=== PATIENT | female | born 1940 | race Asian ===

== ENCOUNTER 2017-12-04 13:51 | Inpatient (IN) | payer OTHER ==
[~2017-12-04] VITALS: Ht 162.6 cm; Wt 115.7 kg
--- NOTE | 2017-12-04 13:51 | NUR ---
Placed in room 01 . Placed on land agent, blood pressure machine and pulse oximeter. To gown for exam. Side rails up.
[2017-12-04 13:52] VITALS: BP_SYST 111
--- NOTE | 2017-12-04 13:53 | NUR ---
[facility] AAOx[facility] c/o acute onset of unprovoked SOB accompanying nausea and vomiting, accessory muscle use. One episode of vomiting upon arrival. Skin pink dry and warm. No other injuries/complaints per pt/noted.
--- NOTE | 2017-12-04 13:55 | NUR ---
EKG done at bedside
[2017-12-04] MEDS ORDERED: IPRATROPIUM/ALBUTEROL SULFATE 3 ML AMPUL.NEB (DUONEB) INH ONE (14:00)
[2017-12-04] MEDS ORDERED: ASPIRIN 325 MG TABLET PO ONE (14:00)
[2017-12-04] MEDS ORDERED: CYAN100097 PO (14:10)
[2017-12-04] MEDS ORDERED: LEVO25TA7 PO (14:10)
[2017-12-04] MEDS ORDERED: TRAZ-123 PO (14:10)
[2017-12-04] MEDS ORDERED: CARV6.2554 PO (14:10)
[2017-12-04] MEDS ORDERED: FER300L PO (14:10)
[2017-12-04] MEDS ORDERED: PRO40 PO (14:10)
[2017-12-04] MEDS ORDERED: LIDOCAINE PATCH TP (14:10)
[2017-12-04] MEDS ORDERED: PERC10 PO (14:10)
[2017-12-04] MEDS ORDERED: GABA-531 PO (14:10)
[2017-12-04] MEDS ORDERED: IPRA3AMP9 INH (14:10)
[2017-12-04] MEDS ORDERED: METO-290 PO (14:10)
[2017-12-04] MEDS ORDERED: WELSR150 PO (14:10)
[2017-12-04] MEDS ORDERED: LIP40 PO (14:10)
[2017-12-04] MEDS ORDERED: ALBU2.5V7 INH (14:10)
[2017-12-04] MEDS ORDERED: FLUT16SP16 NS (14:10)
[2017-12-04] MEDS ORDERED: MORP15TA60 PO (14:10)
[2017-12-04] MEDS ORDERED: METF1000 PO (14:10)
[2017-12-04] MEDS ORDERED: FAMO-132 PO (14:10)
[2017-12-04] MEDS ORDERED: GLIP5TAB13 PO (14:10)
[2017-12-04] MEDS ORDERED: LOSA50TA3 PO (14:10)
[2017-12-04] MEDS ORDERED: SSREG SUBCUT (14:10)
--- NOTE | 2017-12-04 14:10 | NUR ---
Medication reconciliation completed with information provided by HORTENCIA DAVID. Any prior medication reconciliation on file was reviewed and corrected.
--- NOTE | 2017-12-04 14:16 | NUR ---
RT at bedside for breathing tx
[2017-12-04 14:37] LABS: BASOPHILS # (AUTO) 0.3 K/uL (0.0-0.2); BASOPHILS % (AUTO) 4.2 % (0.0-2.0); EOSINOPHILS # (AUTO) 0.4 K/uL (0.0-0.4); EOSINOPHILS % (AUTO) 5.5 % (0.0-4.0); HEMATOCRIT 30.2 % (36-48); HEMOGLOBIN 9.9 g/dL (12.0-16.0); LYMPHOCYTES # (AUTO) 1.3 K/uL (1.0-5.5); LYMPHOCYTES % (AUTO) 17.8 % (20.5-51.5); MEAN CORPUSCULAR HEMOGLOBIN 30 pg (27-31); MEAN CORPUSCULAR HGB CONC 33 % (32-36); MEAN CORPUSCULAR VOLUME 93 fL (79.0-98.0); MONOCYTES # (AUTO) 0.3 K/uL (0.0-1.0); MONOCYTES % (AUTO) 4.3 % (1.7-9.3); NEUTROPHILS # (AUTO) 4.8 K/uL (1.8-7.7); NEUTROPHILS % (AUTO) 68.2 % (40.0-70.0); PLATELET COUNT (AUTO) 239 K/uL (130-430); RED BLOOD CELL COUNT(AUTO) 3.26 MIL/uL (4.2-6.2); RED CELL DISTRIBUTION WIDTH 15.5 % (9.0-15.0); WHITE BLOOD COUNT (AUTO) 7.1 K/uL (4.8-10.8)
--- NOTE | 2017-12-04 15:00 | NUR ---
Unsuccessful PIV attempts x 3.
[2017-12-04 15:10] LABS: ANION GAP 13 (5-15); CHLORIDE 102 mmol/L (98-107); CREATININE 1.09 mg/dL (0.55-1.30); GLUCOSE 187 mg/dL (70-99); POTASSIUM 5.4 mmol/L (3.5-5.1); SODIUM SERUM 135 mmol/L (136-145); UREA NITROGEN, BLOOD 27 mg/dL (8-21)
[2017-12-04 15:15] LABS: ALANINE AMINOTRANSFERASE 22 U/L (12-78); ALBUMIN 3.5 g/dL (3.4-4.8); ASPARTATE AMINOTRANSFERASE 35 U/L (10-37); TOTAL BILIRUBIN 0.8 mg/dL (0.0-1.0)
--- NOTE | 2017-12-04 15:30 | NUR ---
Lab at bedside.
[2017-12-04] MEDS ORDERED: INSULIN REGULAR, HUMAN 10 UNITS/0.1 ML INJ IVP ONE (16:45)
[2017-12-04] MEDS ORDERED: SODIUM POLYSTYRENE SULFONATE 15 GM/60 ML UDBTL PO ONE (16:45)
[2017-12-04] MEDS ORDERED: CALCIUM GLUCONATE 1 GM in NS 100 ML IV ONE (16:45)
--- NOTE | 2017-12-04 17:00 | NUR ---
Pt scoots to edge of bed yelling that she wants to leave. Pt instructed to get back into bed for her safety. Pt complies.
--- NOTE | 2017-12-04 17:18 | NUR ---
CALL PLACED TO DAUGHTER AT GIVEN NUMBER, LEFT MESSAGE FOR CALL BACK
--- NOTE | 2017-12-04 17:20 | NUR ---
Unable to establish PIV access to administer medications ordered. Dr. Urias made aware.
--- NOTE | 2017-12-04 17:37 | NUR ---
Pt screaming and yelling to leave. Ativan 2 mg given IM to Right Deltoid per VO Dr. Urias. Pt in view of nursing station.
[2017-12-04] MEDS ORDERED: LORazepam 2 MG/ML VIAL IVP ONE (17:45)
--- NOTE | 2017-12-04 17:50 | NUR ---
Pt relaxed in bed, no further screaming VSS.
[2017-12-04] MEDS ORDERED: LORazepam 2 MG/ML VIAL (FOR ER USE) ONE (17:59)
--- NOTE | 2017-12-04 18:45 | NUR ---
Dr. Urias at bedside to place central line.
[2017-12-04] MEDS ORDERED: LORazepam 2 MG/ML VIAL IM ONE (19:15)
--- NOTE | 2017-12-04 19:16 | NUR ---
Dr Urias at bedside attempting central line insertion, unable to establish access due to ultrasound machine malfunction. Charge nurse notified, primary nurse notified.
--- NOTE | 2017-12-04 19:20 | NUR ---
Recieved report from Bhupendra KURTZ. Will assume care at this time.
--- NOTE | 2017-12-04 19:30 | NUR ---
#20 gauge angiocath placed to LAC. Use of asceptic technique. Opsite placed over site. Blood return noted. Flushed with 10 cc of normal saline. No evidence of infiltration noted. Patient tolerated well.
[2017-12-04] MEDS ORDERED: CALCIUM GLUCONATE 1 GM/10 ML VIAL ONE (19:36)
[2017-12-04] MEDS ORDERED: INSULIN REGULAR, HUMAN 100 UNITS/ML, 10 ML VIAL (novoLIN R) ONE (19:37)
[2017-12-04] MEDS ORDERED: SODIUM POLYSTYRENE SULFONATE 15 GM/60 ML UDBTL ONE (19:38)
[2017-12-04] MEDS ORDERED: DEXTROSE 50% JECT 50 ML DISP.SYRIN IVP ONE (20:00)
[2017-12-04] MEDS ORDERED: cefTRIAXone 1 GM in D5W 50 ML IV ONE (20:00)
--- NOTE | 2017-12-04 20:00 | NUR ---
Spoke with staff of [facility]. Informed that patient's code status is full code. Documentation placed to chart.
[2017-12-04] MEDS ORDERED: IOHEXOL 350 mgI/mL, 150 ML INFUS..BTL IV ONE (20:25)
--- NOTE | 2017-12-04 20:40 | NUR ---
Patient transported off unit for CT via gurney, accompanied by radiology staff.
[2017-12-04] MEDS ORDERED: cefTRIAXone 1 GM VIAL ONE (20:41)
--- NOTE | 2017-12-04 21:07 | NUR ---
Patient returned to unit.
[2017-12-04] MEDS ORDERED: NACL 0.9% 1,000 ML IV ONE (21:30)
--- NOTE | 2017-12-04 22:00 | NUR ---
Medication reconciliation completed with information provided by patient. Any prior medication reconciliation on file was reviewed and corrected.
[2017-12-04 22:25] LABS: BILIRUBIN,URINE NEGATIVE (NEGATIVE); BLOOD, URINE NEGATIVE (NEGATIVE); CLARITY/URINE CLEAR (CLEAR); COLOR,URINE YELLOW (YELLOW); GLUCOSE,URINE NEGATIVE (NEGATIVE); KETONES,URINE NEGATIVE (NEGATIVE); LEUKOCYTE ESTERASE ,URINE NEGATIVE (NEGATIVE); NITRITE, URINE NEGATIVE (NEGATIVE); PH,URINE 5.5 (5.0-8.0); PROTEIN URINE NEGATIVE (NEGATIVE)
--- NOTE | 2017-12-04 22:35 | NUR ---
Patient will be admitted to care of Dr. Nunez. Admitted to Telemetry unit. Will go to room 107B. Belongings list completed. Summary report printed. Report will be given at bedside. Transfer to telemetry via ACLS protocol. Licensed nurse present. IV present no signs or symptoms of infiltration.
--- NOTE | 2017-12-04 22:37 | NUR ---
ADMISSION: The patient, JIMMY DOLAN, 77 y/o, F admitted by BELLE GUEVARA MD, was given written information regarding hospital policies, unit procedures and contact persons.
--- NOTE | 2017-12-04 22:50 | NUR ---
INITIAL NOTES: PT IS AWAKE , CONFUSED ; VITALS ARE STABLE NOTICED BP IS LOW T 98 F, BP 103/65MMOF HG , HR 81/MIN . R 20/MIN ,SAT 96ON ROOM AIR AT THIS TIME ; NOTICED IV TO THE LEFT FA NEAR AC 20 G, , IV FLUSHED WELL ; PT HAS COLOSTOMY TO THE LEFT ABDOMEN , COLOSTOMY NOTED WITH SOFT FOAMED DARK BROWN STOOL ; COLOSTOMY BAG REMOVED , SITE CLEANED NOTED OPEN WOUND CLEANED WITH NS AND APPLIED COLOSTOMY BAG AFTER APPLIED COLOSTOMY BARRIER RING , STOMA IS PINK TO RED COLOR ,NO DISCOLORATION NOTED , NOTICED A SMALL WOUND AROUND THE STOMA ; ALSO NOTED ABDOMEN WITH OLD SCAR , LEFT LATERAL LEG WITH INCISION HEALED , JULIETA KNEES WITH SCAR AND R CHEEK WITH PURPLE DISCOLORATION , LEFT POSTERIOR SHOULDER WITH SCAR ; ASSESSMENT DONE ; PT IS INCONTINENT ; NOTICED PT IS REMOVING O2 ; REORIENTED PT ; BED IN LOW AND LOCK POSITION ; CALL [place] IN REACH ; ENCOURAGED PT TO CALL FOR ASSIST ; WILL CONTINUE TO MONITOR PT .
[2017-12-04 23:10] VITALS: BP_SYST 115
[2017-12-04] MEDS ORDERED: ONDANSETRON HCL 4 MG/2 ML VIAL IVP PRN (23:45)
[2017-12-04] MEDS ORDERED: IPRATROPIUM/ALBUTEROL SULFATE 3 ML AMPUL.NEB (DUONEB) INH PRN (23:45)
[2017-12-04] MEDS ORDERED: ALBUTEROL SULFATE 0.083% 2.5 MG/3 ML VIAL.NEB INH PRN ×2 (23:45)
[2017-12-05] MEDS ORDERED: PIPERACILLIN/TAZO 3.375/DEX-IS 50 ML IV SCH
--- NOTE | 2017-12-05 00:10 | NUR ---
RN NOTES: WAITING FOR ZOSYN FROM [employer]TR[employer] PRESS ADJUST[employer] ; WILL START ONCE RECEIVED ; PT IS VERY CONFUSED; WILL CONTINUE TO MONITOR PT .
[2017-12-05] MEDS ORDERED: AZITHROMYCIN 500 MG/VIAL (ZITHROMAX) IV ONE (00:29)
[2017-12-05] MEDS ORDERED: PIPERACILLIN/TAZOBACTAM 3.375 GM/VIAL (ZOSYN) IV ONE (00:29)
[2017-12-05] MEDS: ZOSYN (PIPERACILLIN/TAZO) 3.375 GM in DEX-ISO (50ml) IV SCH ×5 (00:39→23:31)
--- NOTE | 2017-12-05 00:39 | NUR ---
ZOSYN : ZOSYN RECEIVED FROM [employer]. IVPB STATED PER ORDER . WILL CONTINUE TO MONITOR PT .
--- NOTE | 2017-12-05 00:50 | NUR ---
RN ROUNDS: NO REACTION NOTED ; NOTICED PT IS CONFUSED AND REMOVING GOWN . REORIENTED PT . WILL CONTINUE TO MONITOR PT .
[2017-12-05] MEDS ORDERED: INSULIN REGULAR, HUMAN 100 UNITS/ML, 10 ML VIAL (novoLIN R) SUBCUT PRN (01:00)
[2017-12-05] MEDS: AZITHROMYCIN 500 MG in NS 250 ML IV SCH ×2 (01:13→23:23)
--- NOTE | 2017-12-05 01:13 | NUR ---
ZITHROMAX: ZITHROMAX STARTED PER ORDER ; PT IS CONFUSED , REORIENTED PT ; WILL CONTINUE TO MONITOR PT .
[2017-12-05 01:21] VITALS: BP_SYST 115
--- NOTE | 2017-12-05 01:30 | NUR ---
RN ROUNDS: PT IS COMFORTABLE , NO REACTIONS NOTED ; WILL CONTINUE TO MONITOR PT .
--- NOTE | 2017-12-05 02:34 | NUR ---
RN NOTES PT IS SLEEPING ,EASILY AROUSABLE CONFUSED NOTICED PT IS STILL TRYING TO REMOVE GOWN , IV ETC , REORIENTED PT .
[2017-12-05 03:57] VITALS: BP_SYST 117
--- NOTE | 2017-12-05 04:16 | NUR ---
RN NOTES/ HORTENCIA DAVID CALLED : PT IS SLEEPING , ON AND OFF , NOT IN ANY ACUTE DISTRESS; WILL CONTINUE TO MONITOR PT . HORTENCIA DAVID CALLED TO VERIFY THE FLU VACCINE STATUS ,TALKED WITH CALEB , PER CALEB NURSE , UNABLE TO FIND PT RECORD FOR FLU VACCINE , NURSE ASKED TO CALL BACK AT 9 AM , WILL ENDORSE TO DAYSHIFT .
[2017-12-05] MEDS: NORMAL SALINE 5 ML DISP.SYRIN IVF SCH ×3 (06:28→23:22)
[2017-12-05] MEDS: INSULIN ASPART 100 UNITS/ML, 10 ML VIAL (NovoLOG) SUBCUT PRN ×4 (06:29→20:56)
--- NOTE | 2017-12-05 06:30 | NUR ---
BS : BS 151, 2 UNITS OF NOVOLOG REGULAR GIVEN PER ORDER . PT IS COMFORTABLE ; DUE MEDS GIVEN ; PT IS SAYING THAT SHE IS HUNGRY ; WILL REQUEST KITCHEN TO PROVIDE FOOD EARLY .
[2017-12-05 06:44] LABS: BASOPHILS % (AUTO) 0.3 % (0.0-2.0); EOSINOPHILS # (AUTO) 0.3 K/uL (0.0-0.4); HEMATOCRIT 29.2 % (36-48); LYMPHOCYTES # (AUTO) 1.1 K/uL (1.0-5.5); LYMPHOCYTES % (AUTO) 21.2 % (20.5-51.5); MEAN CORPUSCULAR HEMOGLOBIN 28 pg (27-31); MEAN CORPUSCULAR HGB CONC 31 % (32-36); MEAN CORPUSCULAR VOLUME 92 fL (79.0-98.0); MONOCYTES # (AUTO) 0.4 K/uL (0.0-1.0); MONOCYTES % (AUTO) 7.6 % (1.7-9.3); NEUTROPHILS # (AUTO) 3.2 K/uL (1.8-7.7); NEUTROPHILS % (AUTO) 65.9 % (40.0-70.0); PLATELET COUNT (AUTO) 217 K/uL (130-430); RED BLOOD CELL COUNT(AUTO) 3.18 MIL/uL (4.2-6.2); RED CELL DISTRIBUTION WIDTH 15.9 % (9.0-15.0)
[2017-12-05 07:01] LABS: ALANINE AMINOTRANSFERASE 17 U/L (12-78); ALBUMIN 2.6 g/dL (3.4-4.8); ANION GAP 10 (5-15); ASPARTATE AMINOTRANSFERASE 20 U/L (10-37); CALCIUM 8.7 mg/dL (8.4-11.0); CHLORIDE 104 mmol/L (98-107); CREATININE 1.03 mg/dL (0.55-1.30); GLUCOSE 160 mg/dL (70-99); POTASSIUM 4.5 mmol/L (3.5-5.1); SODIUM SERUM 140 mmol/L (136-145); TOTAL BILIRUBIN 0.7 mg/dL (0.0-1.0); UREA NITROGEN, BLOOD 23 mg/dL (8-21)
--- NOTE | 2017-12-05 07:30 | NUR ---
CLOSING NOTES: PT IS COMFORTABLE; TALKING TO DAUGHTER ; NOT IN ANY ACUTE DISTRESS; ALL NEEDS MET . REPORT GIVEN TO RN AT BEDSIDE .
--- NOTE | 2017-12-05 08:00 | NUR ---
AM NOTES PT IN BED, AWAKE, CONFUSED. PT KEEPS REMOVING HER OXYGEN. PATIENT COMPLAINS OF SHORTNESS OF BREATH AND ANTERIOR CHEST PAIN. NO DISTRESS NOTED. WILL CONTINUE TO MONITOR. BED IN LOWEST POSITION, BED ALARM ON, THREE SIDE RAILS UP, CALL LIGHT WITHIN REACH, FALL AND ASPIRATION PRECAUTIONS IN PLACE.
[2017-12-05 08:25] VITALS: BP_SYST 159
[2017-12-05] MEDS: CARVEDILOL 6.25 MG TABLET (COREG) PO SCH ×2 (08:40→20:38)
[2017-12-05] MEDS: GABAPENTIN 300 MG CAPSULE PO SCH ×3 (08:40→20:38)
[2017-12-05] MEDS ORDERED: ONDANSETRON HCL 4 MG/2 ML VIAL ONE (09:30)
[2017-12-05] MEDS ORDERED: METOCLOPRAMIDE HCL 10 MG/2 ML VIAL IVP PRN (09:30)
[2017-12-05] MEDS ORDERED: ONDANSETRON HCL 4 MG/2 ML VIAL IVP PRN (09:30)
--- NOTE | 2017-12-05 09:35 | NUR ---
CONSULTATION PAGED/CALLED Reason for Consultation: [] HYPOXIA Person Who was Notified: [] ABBEY Consulting Physician: [] DR Palma JIMENEZ Hardware Press Operator Specialty: [] PULMONOLOGY Ordering Physician: [] DR Atul VALENCIA
--- NOTE | 2017-12-05 10:11 | NUR ---
Nutrition Update Og Scale 14 noted. Pt admitted for pneumonia. Diet: clear liquid BMI: 43.8 kg/m2 RD to follow per nutrition care standards.
--- NOTE | 2017-12-05 10:24 | NUR ---
PAGED DR. VALENCIA MADE AWARE THAT PATIENT IS ASKING FOR ATIVAN, REFUSED ABGS, AND ALSO WANTS AN EKG. NEW ORDERS RECEIVED.
[2017-12-05] MEDS: LORazepam 1 MG TABLET PO PRN ×2 (10:43→16:59)
[2017-12-05 12:05] VITALS: BP_SYST 130
--- NOTE | 2017-12-05 12:29 | NUR ---
RN Rounds/MD page patient resting in bed, denies any pain or distress, emptied and changed colostomy bag, patient requesting a soft diet, no DVT prophylaxis at this time, paged .
--- NOTE | 2017-12-05 14:26 | NUR ---
notes Resting in bed, denies any pain or discomfort. Pt keeps removing his oxygen. no acute distress noted. will monitor.
[2017-12-05] MEDS ORDERED: ENOXAPARIN SODIUM 40 MG/0.4 ML SYRINGE SUBCUT ONE (15:15)
--- NOTE | 2017-12-05 16:39 | NUR ---
CONSULTATION PAGED/CALLED Reason for Consultation: [] AGITATION Person Who was Notified: [] ANANTH Consulting Physician: [] DR Jmiena ISABEL Float Operator Specialty: [] PSYCH Ordering Physician: [] DR Atul VALENCIA
--- NOTE | 2017-12-05 17:00 | NUR ---
Notes patient resting in bed, blood glucose check completed, insulin given per MD order coverage, patient denies any pain or distress at this time, will continue to monitor, bed alarm on, bed in lowest position, two side rails up, call light within reach, fall and aspiration precautions in place.
[2017-12-05 17:06] VITALS: BP_SYST 130
--- NOTE | 2017-12-05 18:51 | NUR ---
Closing note patient resting in bed, patient denies any pain or distress, colostomy bag changed, all needs were met throughout shift, will endorse report to oncoming nurse, bed in lowest position, bed alarm on, two side rails up, bed close to nursing station, fall and aspiration precautions in place.
--- NOTE | 2017-12-05 19:35 | NUR ---
CHANGE OF SHIFT: pt. awake, alert, follows simple commands. instructed pt. to call if help needed. observed fall precautions, side rails up, bed alarm on, call light within reach. denies any shortness of breath, O2 @ 2l/nc. communication board updated. for further assist.
[2017-12-05 20:00] VITALS: BP_SYST 151
[2017-12-05] MEDS ORDERED: ATORVASTATIN 20 MG TABLET PO SCH (21:00)
[2017-12-05] MEDS ORDERED: FAMOTIDINE 20 MG TABLET PO SCH (21:00)
[2017-12-05] MEDS ORDERED: APIXABAN 2.5 MG TABLET PO SCH (21:00)
--- NOTE | 2017-12-05 21:00 | NUR ---
NOTES: due meds given and able to swallow without difficulty. pt. needs attended. due hs care given by TRAIN EXAMINER.
--- NOTE | 2017-12-05 22:30 | NUR ---
NOTES: IV site got infiltrated, red and hurting. pt. is a hard stick, with difficulty to find another vein, all veins been used, using a vein finder, 22 gauge on left upper arm inserted.
--- NOTE | 2017-12-05 23:15 | NUR ---
NOTES: called Dr. Tucker and return the call, pt. been c/o pain on left leg but no pain med, also c/o being anxious and something for sleep, pt. Med recon on Percocet and Ativan, but MD is not ordering except Tylenol and Trazadone, pt. informed. pt. needs attended.
[2017-12-05] MEDS ORDERED: traZODone HCL 50 MG TABLET (DESYREL) PO ONE (23:45)
[2017-12-05] MEDS: ACETAMINOPHEN 325 MG TABLET PO PRN (23:52)
[2017-12-06 00:32] VITALS: BP_SYST 105
--- NOTE | 2017-12-06 00:48 | NUR ---
NOTES: pt. been dozing on and off. fall precautions observed.
--- NOTE | 2017-12-06 01:24 | NUR ---
NOTES: pt. gets restless. O2 come off, call light drops on the floor. pt. said she could not sleep. pt. reassured. on a sitting position in bed. instructed to relax.
--- NOTE | 2017-12-06 02:37 | NUR ---
NOTES: pt. sleeping on and off. remain sitting in bed. cardiac pattern remains sinus rhythm.
--- NOTE | 2017-12-06 03:50 | NUR ---
NOTES: condition guarded and continue to monitor.
--- NOTE | 2017-12-06 05:14 | NUR ---
NOTES: pt. sleeping at this time. needs attended.
[2017-12-06] MEDS: ZOSYN (PIPERACILLIN/TAZO) 3.375 GM in DEX-ISO (50ml) IV SCH ×3 (05:43→17:35)
[2017-12-06] MEDS: NORMAL SALINE 5 ML DISP.SYRIN IVF SCH ×2 (05:44→15:00)
--- NOTE | 2017-12-06 06:00 | NUR ---
NOTES: due IV antibiotic given. pt. sleeping. IV site patent, keeps taking off O2. in no acute distress. for further care and observation.
--- NOTE | 2017-12-06 06:06 | NUR ---
CONSULTATION PAGED/CALLED Reason for Consultation: AGITATION Person Who was Notified: KRISTIE Consulting Physician: DR. ISABEL; CARROT BUNCHER-DR. MORALES Game Design Instructor Specialty: PSYCH Ordering Physician: DR. VALENCIA
[2017-12-06] MEDS: INSULIN ASPART 100 UNITS/ML, 10 ML VIAL (NovoLOG) SUBCUT PRN ×3 (06:28→17:34)
--- NOTE | 2017-12-06 06:30 | NUR ---
CLOSING NOTES; PT. CONDITION GUARDED, PT. GETS DISORIENTED. BS CHECKED 201, WITH SLIDING SCALE COVERAGE GIVEN.
--- NOTE | 2017-12-06 07:15 | NUR ---
endorsed pt. to incoming shift with nurse Miller
--- NOTE | 2017-12-06 07:31 | NUR ---
Initial notes: Patient on bed awake, alert and oriented. Stable. I.V. access patent. On oxygen @ 2l via NV. Discussed plan of care. Safety measures in placed. Call light within reach. Report received from JERARDO Corral.
[2017-12-06 08:14] VITALS: BP_SYST 156
[2017-12-06] MEDS: ACETAMINOPHEN 325 MG TABLET PO PRN (08:22)
[2017-12-06] MEDS: CARVEDILOL 6.25 MG TABLET (COREG) PO SCH (08:23)
[2017-12-06] MEDS: GABAPENTIN 300 MG CAPSULE PO SCH ×2 (08:24→14:59)
[2017-12-06] MEDS ORDERED: ENOXAPARIN SODIUM 40 MG/0.4 ML SYRINGE SUBCUT SCH (09:00)
[2017-12-06] MEDS ORDERED: MORPHINE SULFATE 15 MG TABLET.ER PO ONE (10:15)
[2017-12-06] MEDS ORDERED: OXYCODONE/ACETAMINOPHEN *10*mg/325 mg TABLET PO SCH (10:15)
[2017-12-06 11:00] VITALS: BP_SYST 149
--- NOTE | 2017-12-06 11:02 | NUR ---
P.T.: Seen by PT. Pt walking with walker and PT assist.
--- NOTE | 2017-12-06 12:35 | NUR ---
Sin rounds: Seen by Dr. Benoit (Psych M.D.). Cleared to be transferred to SNF.
[2017-12-06 13:02] VITALS: BP_SYST 149
--- NOTE | 2017-12-06 15:37 | NUR ---
Discharge Planning: DCP faxed pt orders to [facility] (f [phone] ).
--- NOTE | 2017-12-06 16:20 | NUR ---
DCP 12/06/2017 4:10 PM (PT) Kanwal Barboza: DC TO [facility] RM 110 A T [phone]. [facility] AMB [phone] PRESSURE SUPERVISOR 7 PM MET WITH PT THIS AM. " IM VERY HUNGRY". DIET ADVANCE TO DIABETIC DIET. PT EVAL 12/06. PLAN TO SNF FOR PT AND IV ABX. TRANSFER ORDERS FAXED TO [facility]. 12/05/2017 9:57 AM (PT) Kanwal Barboza: 77 [address] [place] loc anita pt. came from [facility] dx sob, requiring hifh flow of 02 [address] angio Bilateral lower lung zone infiltrates and consolidative changes and additional few patchy infiltrates of the posterior lung zones. dr mcrae consult h/o htn, diabetes m. 2 ; ckd 3, s/p revision l knee by dr coles, morbidly obese. in and out of acute care [facility]; sn[facility] 's pt is a/o. [facility] too support system - dtr Lisa fatima dcp/ plan to return to [facility].
--- NOTE | 2017-12-06 16:21 | NUR ---
DCP. LEFT A MESSAGE TO HAJA DOLAN [phone].CRISTÓBAL CASTILLO RN/CM
[2017-12-06 16:49] VITALS: BP_SYST 140
--- NOTE | 2017-12-06 18:18 | NUR ---
Singh Gonzalez: Report given to Braydon Gonzalez at 16:30.
--- NOTE | 2017-12-06 18:19 | NUR ---
Family informed: Called and informed the daughter, Lisa Hathaway, patient will be transferred back to [facility] at 17:00.
--- NOTE | 2017-12-06 18:20 | NUR ---
rounds: Patient finishing dinner. no distress noted. waiting for ambulance.
--- NOTE | 2017-12-06 18:51 | NUR ---
transferPT TRANSFERRED To [facility] Report given to Jose Alejandro herron [facility]. Transfer packet with Transfer Orders and Medication Reconciliation form given to EMT with report. Exitcare provided. [facility] ID band removed, replaced with ID band with pt's name and . IV catheter intact for antibiotic treatment. All belongings sent with patient. Patient left floor via gurney escorted by EMT in no distress.
[2017-12-06] MEDS ORDERED: traZODone HCL 50 MG TABLET (DESYREL) PO SCH ×2 (21:00)
[2017-12-07] MEDS ORDERED: MORPHINE SULFATE 15 MG TABLET.ER PO SCH (09:00)
== END 2017-12-06 18:50 | DRG 177 ==
LOC: SED 13:51 → STU 22:04
PROVIDERS: ADMIT Internal Medicine; ATTEND Internal Medicine
DX: J69.0 Pneumonitis due to inhalation of food and vomit (principal); J96.01 Acute respiratory failure with hypoxia; I21.4 Non-ST elevation (NSTEMI) myocardial infarction; E87.1 Hypo-osmolality and hyponatremia; E11.9 Type 2 diabetes mellitus without complications; E78.5 Hyperlipidemia, unspecified; F03.90 Unspecified dementia, unspecified severity, without behavioral disturbance, psychotic disturbance, mood disturbance, and anxiety; I11.0 Hypertensive heart disease with heart failure; I50.9 Heart failure, unspecified; K22.8 Other specified diseases of esophagus; E87.5 Hyperkalemia; J44.9 Chronic obstructive pulmonary disease, unspecified; K44.9 Diaphragmatic hernia without obstruction or gangrene; Z82.49 Family history of ischemic heart disease and other diseases of the circulatory system; Z86.711 Personal history of pulmonary embolism; Z87.01 Personal history of pneumonia (recurrent); Z93.3 Colostomy status; Z83.3 Family history of diabetes mellitus; Z79.899 Other long term (current) drug therapy; Z79.4 Long term (current) use of insulin; Z87.81 Personal history of (healed) traumatic fracture
CPT/HCPCS: 36415; 71045; 71275; 80053; 81003; 82550-TC; 82962; 83605; 83880; 84484; 85025; 85379; 85730-TC; 87040-TC; 87081; 93005; 93306; 93970; 94640; 96365; 96372; 99285; A4409; C1751; J0456; J0610; J0696; J1650; J1815; J2060; J2405; J2543; J7050; J7060; J7620; Q9967